=== PATIENT | female | born 1975 | race Caucasian/White ===

== ENCOUNTER 2023-11-01 22:24 | Emergency (ER) | payer MEDICARE, MEDICAID, SELFPAY ==
--- NOTE | 2023-11-01 | ECG_ITS ---
Test Date: 2023-11-01 22:30:24 Measurements Intervals [place] Rate: 88 P: 64 NC: 140 QRS: 16 QRSD: 146 T: 63 QT: 421 QTc: 511 Interpretive Statements ATRIAL SENSE- ELECTRONIC VENTRICULAR PACEMAKER WITH INHIBITION UNDERLYING LEFT BUNDLE BRANCH BLOCK BASELINE WANDER- I, II, III NO FURTHER INTERPRETATION IS POSSIBLE ABNORMAL ECG No previous ECG available for comparison Electronically Signed On 11-02-2023 06:36:01 CDT by Ferny Carbajal D.O.
--- NOTE | ~2023-11-01 | XR_ITS ---
EXAMINATION: XR chest 1V portable Exam Date/Time: 11/01/2023 22:40 CDT HISTORY: CP Comparison: None. RESULT: Lines, tubes, and devices: Left chest pacer/AICD with intact leads. Lungs and pleura: Clear. Cardiomediastinal silhouette: Normal. Other: No acute osseous or upper abdominal finding. IMPRESSION: No acute cardiopulmonary process. Reviewed, dictated and finalized at location K.
[2023-11-01 22:22] VITALS: BP 124/76; PULSE 86; RESP 16; TEMP 36.6; O2SAT 98
[2023-11-01 22:50] LABS: Basophils Absolute Auto 0.1 K/mm3 (0.0-0.1); Eosinophils Absolute Auto 0.1 K/mm3 (0-0.3); Eosinophils Percent Auto 1.2 % (0-4.4); Hematocrit 40.3 % (37.0-47.0); Immature Granulocyte Absolute 0.04 K/mm3 (0.00-0.031); Immature Granulocyte Percent A 0.6 % (0-0.5); Lymphocytes Absolute Auto 1.43 K/mm3 (0.9-3.2); Lymphocytes Percent Auto 20.8 % (18.3-44.2); Mean Corpuscular HGB Conc 32.3 g/dl (32-36); Mean Corpuscular Volume 86.9 fl (80-100); Mean Platelet Volume 9.1 fl (7.4-10.4); Monocytes Absolute Auto 0.6 K/mm3 (0.1-0.6); Monocytes Percent Auto 8.7 % (2.6-8.5); Neutrophils Absolute Auto 4.7 K/mm3 (1.3-6.7); Neutrophils Percent Auto 67.7 % (45.5-73.1); Platelet Count Result 316 k/mm3 (150-375); Red Blood Count 4.64 M/mm3 (4.2-5.4); Red Cell Distribution Width 15.6 % (11.5-14.5); White Blood Count 6.9 K/mm3 (4.5-10.0)
[2023-11-01 22:59] LABS: Alanine Aminotransferase 12 U/L (6-35); Alkaline Phosphatase 62 U/L (38-126); Anion Gap 9 mmol/L (4-12); Aspartate Amino Transferase 20 U/L (14-36); Bilirubin,Total 0.6 mg/dL (0.2-1.3); Blood Urea Nitrogen 15 mg/dL (7-17); Carbon Dioxide 25 mmol/L (22-30); Chloride 104 mmol/L (98-107); Estimated CRCL calculation 71 ml/min; Estimated Glomerular Filt Rate > 60; Glucose 90 mg/dL (65-110); Lipase 106 U/L (23-300); Sodium 138 mmol/L (137-145)
[2023-11-01 23:00] LABS: INR 1.1
[2023-11-01 23:01] LABS: Partial Thromboplastin Time 25.2 Seconds (22.3-36.8)
[2023-11-01 23:10] LABS: Troponin I 0.014 ng/mL (0.000-0.034)
--- NOTE | 2023-11-01 23:56 | PC.NURSE ---
Patient seen running out of the ambulance doors by registration. Patient followed by this RN and Sara HAWKINS. Patient states she is leaving. IV removed by patient. Patient left without incident.
[2023-11-02 00:04] LABS: Ethanol < 10 mg/dL (<10)
== END 2023-11-01 23:56 | disposition left against medical advice (07) ==
PROVIDERS: Emergency Provider Emergency Medicine
DX: R07.9 Chest pain, unspecified (principal)
CPT/HCPCS: 36415; 71045; 80053; 80307; 83690; 84484; 85025; 85610; 85730; 93005; 99199